=== PATIENT | female | born 1965 | race Caucasian/White ===

== ENCOUNTER 2016-10-16 09:14 | Day surgery (SDC) | payer OTHER ==
[~2016-10-16] VITALS: Ht 160 cm; Wt 86.2 kg
[~2016-10-16 09:14] MED LIST: 0.9% Sodium Chloride 1,000 ML IV PRN; ASPI-973 PO; ATOR80TA PO; DIPH50C PO; FLUT16SP NS; GEMF600T3 PO; INSU100V2 SUBQ; INSU100V7 SUBQ; LIRA0.6P SQ; LOSA100T29 PO; METF1000 PO; OMEG-38 PO; ONDA-53 PO; PANT40TA2 PO; RANI150T11 PO; TRAM50TA2 PO; [UNRECOGNIZED DRUG - OTHER]
[2016-10-16 09:47] VITALS: BP 102/60; PULSE 75; O2SAT 98
[2016-10-16] MEDS ORDERED: 0.9% Sodium Chloride 1,000 ML IV PRN (10:31)
[2016-10-16] MEDS ORDERED: fentaNYL-PF 50 mCg/mL 2 mL Inj IVPUSH PRN (10:35)
[2016-10-16 11:16] VITALS: BP 116/69; PULSE 73; RESP 16; O2SAT 97
--- NOTE | 2016-10-16 11:16 | PCM.ENDCOL ---
Colonoscopy Date of Service: Oct 16, 2016 Physician Farzad Lehman MD Pre Procedure Diagnosis: Screening personal history of colon polyp Post Procedure Dx & Findings: Polyp hemorrhoids diverticuli Procedure Colonoscopy Withdrawal 12 minutes Prep adequate PROCEDURE IN DETAIL: After unremarkable rectal examination Olympus video colonoscope was inserted patient's anal canal and was advanced to cecum. Landmarks were identified including the ileocecal valve and appendiceal orifice. Scope was withdrawn systematically. The mucosa of the cecum, ascending, transverse, descending, sigmoid, rectal mucosa lined with whitish, pink, smooth, glistening, normal-appearing mucosa, normal fine branching, underlying vascularity, normal haustra. The patient tolerated procedure and was transported to observation area. Prominent fold noted about 1 cm without any mucosal abnormalities based on white light and narrow banding. Biopsy obtained using cold forceps. In the transverse colon, there was a 2 mm polyp which was resected completely using cold snare. In the rectum there was a 1 mm polyp which was resected completely using cold forceps. Patient had medium sized diverticuli mostly in the sigmoid colon however up to the proximal transverse colon. In the rectum retroflexion was done which showed hemorrhoids anal canal was inspected carefully and the way out and hemorrhoids noted. Impression Polyps 2 status post complete removal Hemorrhoids Diverticuli Prominent 1 cm fold status post biopsy Recommendation Repeat colonoscopy 5 years Diverticular diet Presedation Assessment Risks and Benefits Informed consent was obtained from the patient after all risks and benefits including but not limited to drug reaction, infection, pain, bleeding, perforation, as well as alternatives were discussed. Patient monitoring Continuous pulse oximetry, cardiac monitoring, blood pressure monitoring, IV access, and oxygen at 2L per nasal cannula. Periprocedural Fentanyl: Fentanyl 100mcg Incrementally Midazolam: Midazolam 5mg Incrementally Complications There were no periprocedural complications identified. Post Procedure Plan Post Procedure Recommendations 1. Restrict activities today. 2. Resume normal activities in the morning. 3. Resume medications. 4. Patient informed of normal post procedure side effects as bloating, drowsiness, blood streaking in the stool. 5. average risk CRCS. If colon polyps come back as: -Hyperplastic- can repeat colonoscopy in 10 years -Tubular adenoma- repeat colonoscopy in 5 years -Tubulovillous/villous adenoma- repeat colonoscopy in 3 years -If any dysplasia- return to clinic as soon as possible 6. Please don't hesitate to call me with any questions. Farzad Lehman MD Oct 16, 2016 11:16
[2016-10-16 11:26] VITALS: BP 118/72; PULSE 72; RESP 16; O2SAT 98
--- NOTE | 2016-10-20 10:08 | PATH ---
SURGICAL PATHOLOGY Attending Physician:Farzad Lehman M.D. CASE STATUS: Signed Out PATIENT NAME: MIGUEL MEIER PID: [id number] : 1965 DATE COLLECTED:10/16/2016 16:52 SPECIMEN: 1: Colon, Biopsy 2: Colon, Biopsy 3: Rectum, Biopsy CLINICAL HISTORY: 1). PROMINENT VALVE BX 2). TRANSVERSE COLON POLYP X1 3). RECTAL POLYP X1 FINAL DIAGNOSIS: 1.SPECIMEN DESIGNATED PROMINENT VALVE BIOPSY: FRAGMENT OF COLON MUCOSA WITH PROMINENT MUCOSAL LYMPHOID AGGREGATE. Negative for dysplasia and malignancy. 2.TRANSVERSE COLON POLYP: TUBULAR ADENOMA WITH FOCAL SUPERFICIAL INFLAMMATORY CHANGES. 3.RECTAL POLYP: HYPERPLASTIC POLYP. ICD10 CODE D12.3 GROSS DESCRIPTION: The specimen is received in three formalin filled containers labeled with the patient's name. 1). The specimen is sublabeled "prominent valve" and consists of a 0.3 x 0.3 x 0.2 CM portion of tissue which is entirely submitted in cassette 1A. 2). The specimen is sublabeled "transverse colon polyp x1" and consists of a 0.2 x 0.2 x 0.2 CM portion of tissue which is entirely submitted in cassette 2A. 3). The specimen is sublabeled "rectal polyp x1" and consists of a 0.2 x 0.2 x 0.2 CM portion of tissue which is entirely submitted in cassette 3A. 10/16/2016 [facility] MICRO DESCRIPTION: See diagnosis. ICD-9 CODES: CPT CODES: 1: 93215 2: 43974 3: 95198 Electronically Signed Out Connor Clark MD [facility] [address], [place] [address] Technical component performed at [facility], [facility] [address], [address]
== END 2016-10-16 23:59 | disposition home or self-care (01) ==
LOC: END 09:14
PROVIDERS: ATTEND Internal Medicine
DX: Z12.11 Encounter for screening for malignant neoplasm of colon (principal); Z86.010 Personal history of colon polyps; D12.3 Benign neoplasm of transverse colon; K62.1 Rectal polyp; K63.89 Other specified diseases of intestine; K57.30 Diverticulosis of large intestine without perforation or abscess without bleeding; K64.9 Unspecified hemorrhoids; E11.43 Type 2 diabetes mellitus with diabetic autonomic (poly)neuropathy; K31.84 Gastroparesis; Z79.4 Long term (current) use of insulin; I10 Essential (primary) hypertension
CPT/HCPCS: 45380; 45385; 99153; G0500; J2250; J3010; J7030

== ENCOUNTER 2017-01-16 09:05 | Day surgery (SDC) | payer OTHER ==
[~2017-01-16 09:05] MED LIST changes: -0.9% Sodium Chloride 1,000 ML IV PRN; -GEMF600T3 PO; +Lidocaine Topical 2% 30 mL Jelly ONE; -TRAM50TA2 PO
== END 2017-01-16 23:59 | disposition home or self-care (01) ==
LOC: END 09:05
PROVIDERS: ATTEND Internal Medicine Gastroenterology
DX: K21.0 Gastro-esophageal reflux disease with esophagitis (principal)